=== PATIENT | male | born 1965 | race Caucasian/White ===

== ENCOUNTER 2017-06-29 21:13 | Emergency (ER) | payer OTHER ==
[~2017-06-29] VITALS: Ht 170.2 cm; Wt 100.0 kg
[2017-06-29 21:28] VITALS: BP 195/105
[2017-06-29] MEDS ORDERED: [UNRECOGNIZED DRUG - REMARK] PO (21:35)
[2017-06-29] MEDS ORDERED: cholesterol PO (21:35)
[2017-06-29] MEDS ORDERED: aspirin PO (21:35)
[2017-06-29] MEDS ORDERED: METO1TAB7 PO (21:35)
[2017-06-29] MEDS ORDERED: [UNRECOGNIZED DRUG - OTHER] (21:35)
[2017-06-29] MEDS ORDERED: [UNRECOGNIZED DRUG - OTHER] (21:35)
== END 2017-06-30 03:48 | disposition left against medical advice (07) ==
LOC: M ED 21:13
DX: S61.219A Laceration without foreign body of unspecified finger without damage to nail, initial encounter (principal); X58.XXXA Exposure to other specified factors, initial encounter; Y92.9 Unspecified place or not applicable; Y93.9 Activity, unspecified; Y99.9 Unspecified external cause status; Z53.21 Procedure and treatment not carried out due to patient leaving prior to being seen by health care provider

== ENCOUNTER → 2021-01-04 | Outpatient (CLI) | payer OTHER ==
--- NOTE | 2020-12-28 13:57 | SLEEPHOME ---
DATE: 12/02/2020 ORDERED BY: Mary Ann San NP Diagnostic home sleep testing was performed due to concern for the obstructive sleep apnea syndrome. For testing, a nocturnal T3 respiratory monitoring device was used. Continuous record was made of pulse, oxygen saturation, air flow, chest and abdominal strain, and body position. Nine hours and 59 minutes of data were reviewed. There were only 43 minutes marked as time in bed. During the interval marked time in bed, there were 4 respiratory events identified of 10 seconds in duration or greater "appears to be a problem with scoring, will get back to this one later" dictation canceled by doctor/verified/ml
[~2021-01-04] MED LIST: METO1TAB7 PO; [UNRECOGNIZED DRUG - OTHER]; [UNRECOGNIZED DRUG - OTHER]; [UNRECOGNIZED DRUG - REMARK] PO; aspirin PO; cholesterol PO
--- NOTE | 2021-01-05 15:13 | SLEEPHOME ---
DIAGNOSTIC HOME SLEEP STUDY DATE: 01/04/2021 ORDERED BY: LORENZO Medrano Diagnostic home sleep testing was performed due to concern for the obstructive sleep apnea syndrome in this patient with a history of hypersomnia. For testing, a nocturnal T3 respiratory monitoring device was used. Continuous record was made of pulse, oxygen saturation, air flow, chest and abdominal strain, and body position. 11 hours and 59 minutes of data were reviewed. There were 6 hours and 277 minutes marked as time in bed. During the interval marked time in bed, there were 52 respiratory events identified of 10 seconds in duration or greater for a respiratory event index of 8.1. The events were primarily obstructive. Baseline pulse rate 60. Pulse rate range 47 to 173. Baseline saturation was 94%. Saturations fell to 77%. Testing was performed in both the supine and non-supine positions. IMPRESSION: Abnormal home sleep testing, with repetitive respiratory events and oxygen desaturations to 77% with a respiratory event index of 8.1, is consistent with the obstructive sleep apnea syndrome. RECOMMENDATION: The patient should be encouraged to undergo a formal sleep evaluation.
== END ==
LOC: M SLEEP HO 12-02 08:30
PROVIDERS: ATTEND Nurse Practitioner Family
DX: G47.10 Hypersomnia, unspecified (principal)
CPT/HCPCS: G0399 ×4

== ENCOUNTER → 2021-03-10 | Outpatient (CLI) | payer OTHER | LOC: M LABSMTC 10:04 | PROVIDERS: ATTEND Internal Medicine Cardiovascular Disease | DX: Z20.828 Contact with and (suspected) exposure to other viral communicable diseases (principal); Z11.59 Encounter for screening for other viral diseases ==

== ENCOUNTER → 2022-12-22 | Outpatient (CLI) | payer OTHER ==
[2022-12-22 13:22] LABS: HEMATOCRIT 45.4 % (42.0-52.0); HEMOGLOBIN 15.3 g/dl (13.5-17.5); MEAN CORPUSCULAR HEMOGLOBIN 31.8 pg (27.0-33.0); MEAN CORPUSCULAR HGB CONC 33.7 g/dl (32.0-36.5); MEAN CORPUSCULAR VOLUME 94.4 fl (80.0-96.0); PLATELET COUNT, AUTOMATED 193 10^3/uL (150-450); RED BLOOD COUNT 4.81 10^6/uL (4.30-6.10); WHITE BLOOD COUNT 6.9 10^3/uL (4.0-10.0)
[2022-12-22 13:41] LABS: BLOOD UREA NITROGEN 12 MG/DL (9-23); CALCIUM LEVEL 9.2 MG/DL (8.5-10.1); CARBON DIOXIDE LEVEL 32 MMOL/L (20-31); CHLORIDE LEVEL 103 MMOL/L (98-107); CREATININE FOR GFR 0.99 MG/DL (0.70-1.30); GLOMERULAR FILTRATION RATE > 60.0 (>56); GLUCOSE, FASTING 93 MG/DL (60-100); POTASSIUM SERUM 4.7 MMOL/L (3.5-5.1); SODIUM LEVEL 138 MMOL/L (136-145)
== END ==
LOC: M PLALAB 09:15
PROVIDERS: ATTEND Nurse Practitioner Family
DX: I48.92 Unspecified atrial flutter (principal); R06.09 Other forms of dyspnea